=== PATIENT | female | born 1945 | race Caucasian/White ===

== ENCOUNTER → 2016-11-18 17:02 | Outpatient (CLI) | payer MEDICARE ==
[2009-08-27 08:30] VITALS: BMI 36.0
== END | disposition home or self-care (01) ==
LOC: D.MAMMO 10:00
DX: Z12.31 Encounter for screening mammogram for malignant neoplasm of breast (principal)

== ENCOUNTER 2016-12-16 09:42 | Outpatient (CLI) | payer MEDICARE ==
[2009-08-27 08:30] VITALS: BMI 36.0
== END 2016-12-16 13:25 ==
LOC: D.MAMMO 09:42
DX: R92.8 Other abnormal and inconclusive findings on diagnostic imaging of breast (principal)

== ENCOUNTER 2019-04-22 19:00 | Outpatient (CLI) | payer MEDICARE, OTHER ==
[2009-08-27 08:30] VITALS: BMI 36.0
== END 2019-04-22 23:59 | disposition home or self-care (01) ==
LOC: D.MAMMO 19:00
PROVIDERS: ATTEND Registered Nurse Emergency
DX: Z12.31 Encounter for screening mammogram for malignant neoplasm of breast (principal)